=== PATIENT | male | born 1965 | race Caucasian/White ===

== ENCOUNTER 2018-12-10 13:39 | Observation (INO) | payer OTHER ==
[2018-12-10] MEDS ORDERED: Aspirin 81 mg CHEW TAB* 81 MG TAB.CHEW PO ONE (14:02)
[2018-12-10] MEDS ORDERED: Nitroglycerin 2% OINT* 1 GM PAK TOPICAL ONE (14:02)
--- NOTE | 2018-12-10 14:12 | ED ---
HPI Chest Pain - HPI Summary HPI Summary: Pt is a 53 y/o M presenting to the ED with chest pain on his L anterior chest, described as sharp pains, onset randomly, most commonly after he eats. The pain only lasts a few seconds, and then theres a dull discomfort that lasts afterwards. At night, as he falls asleep, he feels as though his heart jumps out of his chest and he has to get up. The pt denies nausea, vomiting, dizziness , shortness of breath, or rash. The pt denies smoking, family hx of heart attacks, or HTN. The pt presently does not drink but previously drank 2 bottles of wine/week. - History of Current Complaint Chief Complaint: EDChestPainROMI Time Seen by Provider: 12/10/18 13:56 Hx Obtained From: Patient Onset/Duration: Started Weeks Ago Timing: Intermittent, Lasting Seconds Initial Severity: Moderate Current Severity: Moderate Pain Intensity: 1 Pain Scale Used: 0-10 Numeric Chest Pain Location: Left Anterior Chest Pain Radiates: No Aggravating Factor(s): Other: - unknown, pt states it is irregular Alleviating Factor(s): Nothing Associated Signs and Symptoms: Positive: Chest Pain. Negative: Anxiety, Shortness of Breath, Nausea, Vomiting - Allergy/Home Medications Allergies/Adverse Reactions: Allergies Allergy/AdvReac Type Severity Reaction Status Date / Time No Known Allergies Allergy Verified 12/10/18 13:49 Home Medications: Home Medications NK [No Home Medications Reported] 12/10/18 [History Confirmed 12/10/18] PMH/Surg Hx/FS Hx/Imm Hx Previously Healthy: Yes Cardiovascular History: Denies: Hx Hypertension History: Denies: Hx Acute Renal Failure Infectious Disease History: No Infectious Disease History: Denies: Traveled Outside the [place] in Last 30 Days - Family History Known Family History: Negative: Cardiac Disease, Hypertension - Social History Alcohol Use: Weekly Substance Use Type: Reports: None Smoking Status (MU): Never Smoked Tobacco Review of Systems Negative: Fever Negative: Shortness Of Breath Negative: Vomiting, Nausea Negative: Rash Neurological: Negative - dizziness All Other Systems Reviewed And Are Negative: Yes Physical Exam - Summary Physical Exam Summary: Appearance: Well appearing, no pain distress Skin: warm, dry, reflects adequate perfusion Head/face: normal Eyes: EOMI, JENNY ENT: normal Neck: supple, non-tender Respiratory: CTA, breath sounds present Cardiovascular: RRR, pulses symmetrical Abdomen: non-tender, soft Musculoskeletal: mild tenderness over L chest, strength/ROM intact Neuro: normal, sensory motor intact, A&Ox3 Triage Information Reviewed: Yes Vital Signs On Initial Exam: Initial Vitals Temp Pulse Resp BP Pulse Ox 97.5 F 79 16 136/82 96 12/10/18 13:45 12/10/18 13:45 12/10/18 13:45 12/10/18 13:45 12/10/18 13:45 Vital Signs Reviewed: Yes Diagnostics - Vital Signs Vital Signs Temp Pulse Resp BP Pulse Ox 12/10/18 13:55 79 15 135/88 98 12/10/18 13:54 69 10 96 12/10/18 13:45 97.5 F 79 16 136/82 96 - Laboratory Result Diagrams: 12/10/18 14:34 12/10/18 14:34 Lab Statement: Any lab studies that have been ordered have been reviewed, and results considered in the medical decision making process. - Radiology Chest x-ray Radiology Interpretation Completed By: Radiologist Summary of Radiographic Findings: No active cardiopulmonary disease. ED physician has reviewed this report. - EKG 1411 Cardiac Rate: NL - 75bpm EKG Rhythm: Sinus Rhythm ST Segment: Normal Ectopy: None Chest Pain Course/Dx - Course Course Of Treatment: Pt is a 53 y/o M presenting to the ED with chest pain on his L anterior chest, described as sharp pains, onset randomly, most commonly after he eats. The pt denies nausea, vomiting, dizziness, shortness of breath, or rash. The pt denies smoking, family hx of heart attacks, or HTN. The pt presently does not drink but previously drank 2 bottles of wine/week. Bloodwork obtained. EKG shows NSR at 75bpm. A chest x-ray reveals no active cardiopulmonary disease. Patient will be admitted with a dx of chest pain to r/ o ND. - Chest Pain Differential Diagnosis/HQI/PQRI: Acute ND, ACS, Angina, Chest Wall, Lower Respiratory Infection, Pulmonary Edema - Diagnoses Provider Diagnoses: Chest pain, rule out acute myocardial infarction - Provider Notifications Discussed Care Of Patient With: Brett Delacruz - hospitalist Time Discussed With Above Provider: 15:55 Discharge - Sign-Out/Discharge Documenting (check all that apply): Patient Departure - Discharge Plan Condition: Stable Disposition: ADMITTED TO [facility] Referrals: Edil Mcginnis MD [Primary Care Provider] - - Billing Disposition and Condition Condition: STABLE Disposition: Admitted to [facility] - Attestation Statements Document Initiated by Isai: Yes Documenting Scribe: Gloria Valle Provider For Whom Isai is Documenting (Include Credential): Chalo Crane MD. Scribe Attestation: Gloria Rizo scribed for Chalo Crane MD. on 12/10/18 at 1627. Scribe Documentation Reviewed: Yes Provider Attestation: The documentation as recorded by the Gloria mcclellan accurately reflects the service I personally performed and the decisions made by Chalo birmingham MD. Status of Scribe Document: Viewed
[2018-12-10 14:41] LABS: Hematocrit 47 % (42-52); Hemoglobin 15.7 g/dl (14.0-18.0); Mean Corpuscular HGB Conc 34 g/dl (31-36); Mean Corpuscular Hemoglobin 29 pg (27-31); Mean Corpuscular Volume 87 fL (80-94); Mean Platelet Volume 8.8 fL (7.4-10.4); Platelet Count 188 10^3/ul (150-450); Red Blood Count 5.36 10^6/ul (4.00-5.40); Red Cell Distribution Width 13 % (10.5-15); White Blood Count 13.9 10^3/ul (3.5-10.8)
[2018-12-10 15:00] LABS: Albumin 4.3 g/dL (3.2-5.2); Albumin/Globulin Ratio 1.5 (1-3); BUN/Creatinine Ratio 30.9 (8-20); Calcium 9.3 mg/dL (8.6-10.3); EGFR Non-African American 154.7 (>60); Globulin 2.9 g/dL (2-4); Potassium 4.1 mmol/L (3.5-5.0); Total Protein 7.2 g/dL (6.4-8.9)
[2018-12-10 15:07] LABS: Activated Partial Thrombo Time 34.4 seconds (26.0-36.3); INR 1.04 (0.77-1.02)
[2018-12-10 15:48] LABS: ABS Basophils 0.1 10^3/ul (0-0.2); ABS Eosinophils 0 10^3/ul (0-0.6); ABS Lymphocytes 10.4 10^3/ul (1.0-4.8); ABS Monocytes 0.6 10^3/ul (0-0.8); ABS Neutrophils 2.8 10^3/ul (1.5-7.7); ABS Nucleated RBC 0.1 10^3/ul; Eosinophil % 0.2 %; Lymphocyte % 75.1 %; Nucleated Red Blood Cells % 0.5
[2018-12-10] MEDS ORDERED: Acetaminophen TAB* 325 MG PO PRN (16:25)
[2018-12-10] MEDS ORDERED: Ondansetron INJ* 2 MG/ML VIAL IV PRN (16:25)
[2018-12-10] MEDS ORDERED: Nitroglycerin TAB 0.4 MG* 0.4 MG TAB SL PRN (16:25)
[2018-12-10] MEDS: Pantoprazole TAB * 40 MG TAB PO SCH (17:17)
[2018-12-10] MEDS: NS 0.9% 1000 ML* 1,000 ML IV SCH (17:17)
[2018-12-10] MEDS: Heparin VIAL(*) 5000 UNITS/ML VIAL (FIVE THOUSAND) SUBCUT SCH (20:53)
--- NOTE | 2018-12-10 21:20 | HP ---
CC: Dr. Edil Mcginnis HISTORY AND PHYSICAL: DATE OF ADMISSION: 12/10/18 CHIEF COMPLAINT: Chest pain. PRIMARY CARE PROVIDER: Dr. Edil Mcginnis. HISTORY OF PRESENT ILLNESS: This is a 53-year-old male who does not carry any significant past medic al history other than myoclonus and sleep disorder, presented to the emergency room with intermittent chest pain for the past 2 to 3 days, unable to contribute it to a specific factor. Three days ago, when it happened, it was sharp, retrosternal. He associated it to a large meal that he had. The he continued to have intermittent chest pain radiating to the left shoulder and worsening of his myoclonus symptoms. Out of concern that this could be related to a muscle spasm related to my oclonus causing some heart damage, he came into the emergency room. In the emergency room, he was s een and evaluated. His initial workup was fairly unremarkable and benign, except for a white cell on his CBC of 13.9, without any fever or chills, normal differentials, slightly elevated absolute lymph ocyte. His INR was 1.0 and his chemistry fairly unremarkable, with negative troponin so far x3. Pat ient had as well a chest x-ray, which was negative. EKG shows normal sinus rhythm, no ischemic arevalo es, no ST or T-wave changes to suggest ischemia. His rate was 75, AR 187, QTc 407 and QRS 96. The p atient is, hence, being admitted under medical service for observation given his symptoms of chest pa in. PAST MEDICAL HISTORY: Myoclonus. ALLERGIES: No known drug allergy. SOCIAL HISTORY: Denies any excessive tobacco or alcohol abuse; very seldom one drink, if any, in a w [place]. FAMILY HISTORY: Denied any history of cardiac disease. PAST SURGICAL HISTORY: Denies any. PHYSICAL EXAMINATION GENERAL: He is awake, alert, oriented. No apparent acute or cardiac distress. VITAL SIGNS: Temperature 97.1, pulse 70, respiratory rate 18, saturation 97, blood pressure 123/63. HEAD and NECK: Normocephalic, atraumatic. Supple. Anicteric sclerae. No JVD. Moist mucous membran es. LUNGS: Clear to auscultation bilaterally. No crackles, rales or wheezes. CARDIOVASCULAR: S1 and S2; regular rate and rhythm. No murmur. ABDOMEN: Positive bowel sounds, soft, nontender, nondistended. EXTREMITIES: No pedal edema. Good peripheral pulses bilaterally. COATING TECHNICIAN: There is no motor or focal sensory deficit. DIAGNOSTIC STUDIES/LAB DATA: His CBC shows white count 13.9, hemoglobin 15.7, hematocrit 47, platel et 188. INR 1.0. Chemistry: Sodium 139, potassium 4.1, BUN 17, creatinine 0.5, glucose 101, calcium 9.3, total bili 2 .0, AST 26, ALT 32, alk phos 79. Chest x-ray: No active disease. EKG: Sinus rhythm, rate 75. No ischemic ST wave changes. There is Q-wave in the inferior lead. No prior EKG for comparison. Troponin negative x3. IMPRESSION: This is a 53-year-old male, comes in with a chest pain, possible atypical presentation, acute coronary syndrome rule out versus gastrointestinal symptoms. We will admit to Telemetry. We wi ll continue with observation. We will obtain serial cardiac enzymes q.6 hours. Repeat diagnostic la b in the morning. If patient's troponin is negative, remaining asymptomatic, we will discharge patie nt in the morning with outpatient followup. History of myoclonus. I discussed with the patient the potential problem underlying, sleep apnea, ma y be central. Recommended to have outpatient sleep study. [id number]/[facility] #: [id number]
[2018-12-11] MEDS: Pantoprazole TAB * 40 MG TAB PO SCH (05:05)
[2018-12-11] MEDS: Heparin VIAL(*) 5000 UNITS/ML VIAL (FIVE THOUSAND) SUBCUT SCH ×2 (05:05→13:19)
[2018-12-11 06:35] LABS: Hematocrit 43 % (42-52); Hemoglobin 14.3 g/dl (14.0-18.0); Mean Corpuscular HGB Conc 34 g/dl (31-36); Mean Corpuscular Hemoglobin 29 pg (27-31); Mean Corpuscular Volume 88 fL (80-94); Mean Platelet Volume 8.8 fL (7.4-10.4); Platelet Count 162 10^3/ul (150-450); Red Blood Count 4.88 10^6/ul (4.00-5.40); Red Cell Distribution Width 14 % (10.5-15); White Blood Count 13.7 10^3/ul (3.5-10.8)
[2018-12-11 07:13] LABS: BUN/Creatinine Ratio 28.8 (8-20); Calcium 9.1 mg/dL (8.6-10.3); EGFR Non-African American 142.6 (>60); HDL Cholesterol 25.7 mg/dL; Phosphorus 3.5 mg/dL (2.5-5.0); Potassium 4.1 mmol/L (3.5-5.0)
[2018-12-11 07:32] LABS: ABS Basophils 0 10^3/ul (0-0.2); ABS Eosinophils 0 10^3/ul (0-0.6); ABS Lymphocytes 9.7 10^3/ul (1.0-4.8); ABS Monocytes 0.6 10^3/ul (0-0.8); ABS Neutrophils 3.3 10^3/ul (1.5-7.7); ABS Nucleated RBC 0.1 10^3/ul; Eosinophil % 0.2 %; Nucleated Red Blood Cells % 0.9
[2018-12-11] MEDS: NS 0.9% 1000 ML* 1,000 ML IV SCH (08:01)
[2018-12-11] MEDS ORDERED: Aspirin EC TAB* 325 MG PO SCH (09:00)
[2018-12-11 12:11] VITALS: BP 137/75
--- NOTE | 2018-12-11 22:04 | DS ---
CC: Dr. Edil Mcginnis * DISCHARGE SUMMARY: DATE OF ADMISSION: 12/10/18 DATE OF DISCHARGE: 12/11/18 PRIMARY CARE PROVIDER: Dr. Edil Mcginnis. FINAL DISCHARGE DIAGNOSES: 1. Chest pain, atypical, suspect most likely secondary to gastroesophageal reflux disease. 2. History of myoclonia. HOSPITAL COURSE: The patient presented to [facility] on 12/10/18 for very vague, nonspecific chest pain, tightness, radiating to bilateral chest, associated with his known history of myoclonus. However, the chest pain and tightness and spasm was little more severe and more pronounced than his previous. Hence, he came into the emergency room for further evaluation. In the emergency room, his initial workup was fairly unremarkable with negative troponin, negative EKG other than underlying baseline increase of leukocytosis. Therefore, the patient was admitted and was monitored on tele. His cardiac workup consisted of serial cardiac enzymes, 24-hour telemonitor, and repeat EKG which were fairly unremarkable. He was asymptomatic. He did have no episode of chest pain overnight and on the following morning. The patient did, however , have some transient episodes of bilateral hand numbness, which was resolved. This has usually also happened with his myoclonus, but this time was only slightly more severe. PHYSICAL EXAMINATION: Otherwise, the rest of his vitals were unremarkable. Temperature 97.9, pulse 73, respiratory 16, satting 95%, blood pressure 137/75. In general, he is awake, alert, pleasant, cooperative, no apparent distress. Head and Neck: Normocephalic, atraumatic. Supple. Lungs: Clear to auscultation. Cardiovascular: S1, S2. Regular rate and rhythm. No murmur. Abdomen: Positive bowel sounds. Soft, nontender, nondistended. Extremities: No pedal edema. He has a positive good grasp at bilateral hands. DIAGNOSTICS: His CBC was significant for leukocytosis of 13.9. No prior other than 2014, it was 7.6. His chemistry was unremarkable. Negative troponin times at least 4 sets, 0.00. His lipid panel was significant for normal LDL of 54 with triglycerides 218, elevated. His chest x-ray was reported to be no acute disease, no pulmonary disease. His EKG x2 revealed normal sinus rhythm. Pulse was 75. QRS 96, QTc 407, VT 187, good R-wave progression, no ischemic or ST-T wave changes to suggest ischemia. DISCHARGE RECOMMENDATIONS: 1. The patient to follow up with his primary care as scheduled and further followup for further cardiac workup can be deferred for outpatient after discussion with PCP such as cardiac testing, stress testing, or cardiology referral. 2. For his leukocytosis without the fever, whether this is leukemoid reaction versus further investigation with repeat CBC with peripheral smear and Hematology referral for outpatient, I will defer that again to his primary care provider. 3. I did suggest the patient to take pantoprazole for atypical chest pain which is probably due to his reflux and if it does offer some relief, further prescription can be obtained and refilled from his primary care provider. [id number]/[facility] #: [id number] CATIE
== END 2018-12-11 14:50 | disposition home or self-care (01) ==
LOC: ED 13:39 → MEDTELE 16:18
PROVIDERS: ADMIT Internal Medicine; ATTEND Internal Medicine
DX: R07.89 Other chest pain (principal); G40.B19 Juvenile myoclonic epilepsy, intractable, without status epilepticus; G47.9 Sleep disorder, unspecified; R42 Dizziness and giddiness
CPT/HCPCS: 36415; 71045; 80048; 80053; 80061; 83735; 83880; 84100; 84484; 85025; 85060; 85610; 85730; 93005; 96372; 96374; 99283; A9270-GY; G0378; J1644

== ENCOUNTER 2019-04-03 17:15 | Emergency (ER) | payer OTHER ==
--- NOTE | 2019-04-03 18:35 | ED ---
Back Pain - HPI Summary HPI Summary: A 53 y/o M presents to ED with atraumatic, lower back pain onset 2-3 weeks ago. Initially, the pain was present at night, when he's trying to sleep. Aggravating factors: mornings, going down stairs. More recently, his back pain has worsened and is present more often and radiating up his back and into his chest. Today, he had severe, sharp CP described as tightening onset 1100 that lasted approx 5 minutes. Associated sx: bloated, constipation, metallic taste in mouth, decreased oral intake, palpitations. Denies fever. PMHx: esophagitis. No PMHx back problems, DM. Non-smoker. - History of Current Complaint Chief Complaint: EDBackInjuryPain Stated Complaint: RT SIDE AND BACK PAIN PER PT Time Seen by Provider: 04/03/19 18:28 Hx Obtained From: Patient Onset/Duration: Gradual Onset, Lasting Weeks - back pain, Still Present Onset/Duration: Started Weeks Ago - back pain, Atraumatic, Still Present Timing: Constant Back Pain Location: Is Discrete @ - lower back, Radiates To - upper back and chest Severity Initially: Mild Severity Currently: Mild Pain Intensity: 2 - out of 10, back pain Pain Scale Used: 0-10 Numeric Aggravating Symptom(s): Other - mornings and going down stairs Associated Signs And Symptoms: Positive: Other - pos: bloated, constipation, metallic taste in mouth, decreased oral intake, palpitations. Negative: Fever - Allergies/Home Medications Allergies/Adverse Reactions: Allergies Allergy/AdvReac Type Severity Reaction Status Date / Time No Known Allergies Allergy Verified 12/10/18 13:49 PMH/Surg Hx/FS Hx/Imm Hx Previously Healthy: No Endocrine/Hematology History: Denies: Hx Diabetes Cardiovascular History: Denies: Hx Hypertension GI History: Reports: Other GI Disorders - esophagitis History: Denies: Hx Acute Renal Failure Musculoskeletal History: Denies: Hx Back Problems Sensory History: Reports: Hx Contacts or Glasses Denies: Hx Hearing Aid Opthamlomology History: Reports: Hx Contacts or Glasses Neurological History: Comment Only: Other Neuro Impairments/Disorders - Myoclonus - Surgical History Surgery Procedure, Year, and Place: Eye surgery Infectious Disease History: No Infectious Disease History: Denies: Traveled Outside the [place] in Last 30 Days - Family History Known Family History: Positive: Other - mother alive / healthy at 75 years old Negative: Cardiac Disease, Hypertension - Social History Occupation: Unemployed - OTHER Lives: Alone Alcohol Use: Occasionally Hx Substance Use: No Substance Use Type: Reports: None Hx Tobacco Use: No Smoking Status (MU): Never Smoked Tobacco Review of Systems Negative: Fever Positive: Palpitations, Chest Pain Positive: Other - pos: bloated, constipation, decreased oral intake, metallic taste in mouth Musculoskeletal: Other - pos: back pain All Other Systems Reviewed And Are Negative: Yes Physical Exam - Summary Physical Exam Summary: Appearance: Well-appearing, Well-nourished, lying in bed comfortably Skin: Warm, dry, no obvious rash Eyes: sclera anicteric, no conjunctival pallor ENT: mucous membranes moist, pharynx appears normal Neck: Supple, nontender Respiratory: Clear to auscultation, no signs of respiratory distress Cardiovascular: Normal S1, S2. No murmurs. Normal distal pulses in tibial and radial bilaterally. Abdomen: Soft, nontender, normal active bowel sounds present Musculoskeletal: Normal, Strength/ROM Intact. No clonus nor hyperactive reflexes. Neurological: A&Ox3, awake and alert, mentation is normal, speech is fluent and appropriate Psychiatric: affect is normal, does not appear anxious or depressed Rectal exam: Non-tender prostate. Triage Information Reviewed: Yes Vital Signs On Initial Exam: Initial Vitals Temp Pulse Resp BP Pulse Ox 98.6 F 94 18 127/96 95 04/03/19 17:37 04/03/19 17:37 04/03/19 17:37 04/03/19 17:37 04/03/19 17:37 Vital Signs Reviewed: Yes Diagnostics - Vital Signs Vital Signs Temp Pulse Resp BP Pulse Ox 04/03/19 17:37 98.6 F 94 18 127/96 95 - Laboratory Result Diagrams: 04/03/19 19:02 04/03/19 19:02 Lab Statement: Any lab studies that have been ordered have been reviewed, and results considered in the medical decision making process. - Radiology L-SPINE Radiology Interpretation Completed By: ED Physician Summary of Radiographic Findings: Negative. - EKG 1744 Cardiac Rate: NL - 86 bpm EKG Rhythm: Sinus Rhythm Summary of EKG Findings: NSR at 86 BPM, P waves, QRS complex, and T waves are within normal limits, T waves and intervals are normal, no ischemic changes. This is a normal EKG. Re-Evaluation - Re-Evaluation 1 Re-Evaluation Time: 21:02 Change: Worse Comment: Called to see patient for abrupt onset of a burning sensation in the penis. This began immediately after he voided, he has never had it before. It appears to be dissipating fairly quickly fortunately. We will await the results of urinalysis. Exam of the male genitalia appears normal. 2 Re-Evaluation Time: 21:34 Change: Unchanged Comment: Rectal exam shows a non-tender prostate. Back Pain Course/Dx - Course Course Of Treatment: Pt is a 53 y/o M presenting with atraumatic, lower back pain onset 2-3 weeks ago. More recently, his back pain is radiating up to his back and into his chest. Today, he had severe, sharp CP described as tightening onset 1100 that lasted approx 5 minutes. L-spine XR was negative. EKG shows NSR at 86 BPM, P waves, QRS complex, and T waves are within normal limits, T waves and intervals are normal, no ischemic changes. UA results are unremarkable. Will discharge patient home with Vicodin and to f/u with his PCP. - Diagnoses Provider Diagnoses: Mechanical low back pain, Chest pain, Dysuria Discharge - Sign-Out/Discharge Documenting (check all that apply): Patient Departure - D/C Patient Received Moderate/Deep Sedation with Procedure: No - Discharge Plan Condition: Good Disposition: HOME Prescriptions: Hydrocodone/Acetaminophen [Hydrocodone-Acetamin 5-325 mg] 1 each PO Q4HR PRN # 15 tablet MDD 4 tabs PRN Reason: Pain Patient Education Materials: Chest Pain (ED), Acute Low Back Pain (ED) Referrals: Alfonso Baxter MD [Medical Doctor] - Edil Mcginnis MD [Primary Care Provider] - Additional Instructions: I am not sure what caused the pain after urination, as the urinalysis was normal and the prostate did not feel enlarged or particularly tender. The back pain appears to be related to the supporting structures of the back, the muscles and ligaments to surround the spine, and generally can be treated with pain medication and time. Your primary provider may want to send you to get some physical therapy which can also be helpful. We did not find any evidence of a serious or dangerous cause for your pain, nor did we find any sign of a heart condition causing your chest pain. - Billing Disposition and Condition Condition: GOOD Disposition: Home - Attestation Statements Document Initiated by Eleuterio: Yes Documenting Scribe: Mame Cook Provider For Whom Eleuterio is Documenting (Include Credential): Dr. Yassine Ruano MD Scribe Attestation: I, Mame Cook, scribed for Dr. Yassine Ruano MD on 04/04/19 at 1151. Scribe Documentation Reviewed: Yes Provider Attestation: The documentation as recorded by the eleuterio, Mame Cook accurately reflects the service I personally performed and the decisions made by me, Dr. Yassine Ruano MD Status of Scribe Document: Viewed
[2019-04-03 19:09] LABS: Hematocrit 45 % (42-52); Hemoglobin 15.1 g/dL (14.0-18.0); Mean Corpuscular HGB Conc 34 g/dL (31-36); Mean Corpuscular Hemoglobin 30 pg (27-31); Mean Corpuscular Volume 88 fL (80-94); Platelet Count 177 10^3/uL (150-450); Red Blood Count 5.06 10^6 /uL (4.18-5.48); Red Cell Distribution Width 14 % (10.5-15); White Blood Count 16.2 10^3/uL (3.5-10.8)
[2019-04-03] MEDS ORDERED: Ibuprofen TAB* 400 MG PO ONE (19:21)
[2019-04-03 19:22] LABS: Albumin 4.5 g/dL (3.2-5.2); CO2 Carbon Dioxide 25 mmol/L (22-32); Calcium 9.3 mg/dL (8.6-10.3); Chloride 110 mmol/L (101-111); Sodium 142 mmol/L (135-145)
[2019-04-03 19:28] LABS: ALT 25 U/L (7-52); Albumin/Globulin Ratio 1.9 (1-3); Alkaline Phosphatase 85 U/L (34-104); BUN/Creatinine Ratio 21.2 (8-20); Blood Urea Nitrogen 14 mg/dL (6-24); C Reactive Protein < 1.00 mg/L (<8.01); EGFR African American 151.6 (>60); EGFR Non-African American 125.3 (>60); Globulin 2.4 g/dL (2-4); Glucose 110 mg/dL (70-100); Total Protein 6.9 g/dL (6.4-8.9); Troponin I 0.01 ng/mL (<0.04)
[2019-04-03 19:38] LABS: Anion Gap 7 mmol/L (2-11)
[2019-04-03 21:25] LABS: Urine Appearance Cloudy; Urine Bilirubin Negative (Negative); Urine Blood Negative (Negative); Urine Color Yellow; Urine Glucose Negative (Negative); Urine Ketones Negative (Negative); Urine Nitrite Negative (Negative); Urine Protein Negative (Negative); Urine Specific Gravity 1.026 (1.010-1.030); Urine Urobilinogen Negative (Negative)
[2019-04-03 21:54] VITALS: BP 126/74
[2019-04-04 13:42] LABS: Neisseria gonorrhoeae (GC) RNA Negative (Negative)
== END 2019-04-03 21:58 | disposition home or self-care (01) ==
LOC: ED 17:15
DX: M54.5 Low back pain (principal); R07.9 Chest pain, unspecified; R30.0 Dysuria
CPT/HCPCS: 36415; 72100; 80053; 81003; 84484; 85025; 85060; 86140; 87491; 87591; 93005; 99283; A9270-GY

== ENCOUNTER 2019-12-16 08:27 | Emergency (ER) | payer OTHER ==
[2019-12-16 09:37] LABS: Urine Appearance Cloudy; Urine Bilirubin Negative (Negative); Urine Blood Negative (Negative); Urine Color Yellow; Urine Glucose Negative (Negative); Urine Ketones Negative (Negative); Urine Nitrite Negative (Negative); Urine Protein Negative (Negative); Urine Specific Gravity 1.026 (1.010-1.030); Urine Urobilinogen Negative (Negative)
[2019-12-16 09:48] LABS: Urine Bacteria Absent (Absent); Urine Red Blood Cell 1+(3-5/hpf) (Absent); Urine Squamous Epithelial Cell Present (Absent); Urine White Blood Cell Trace(0-5/hpf) (Absent)
[2019-12-16 10:41] VITALS: BP 121/78
--- NOTE | 2019-12-16 11:20 | ED ---
Back Pain - HPI Summary HPI Summary: This patient is a 54-year-old male who presents to the ED with acute on chronic back pain. Patient is endorsing pain directly over the low spine. He denies any injury. He states it has been present for approximately 3 weeks, however before this he states he has had back pain throughout the last several years intermittently. He states he is here to get a workup for colon cancer. He is concerned with this as his grandfather recently had a tumor removed. He states he is concerned as he is having "some rectal pressure." He denies any bladder or bowel dysfunction. He states he has had this pressure intermittently in the past. No BRBPR. No hx of hemorrhoids. He denies having a colonoscopy. He did have a GAIL and occult stool last visit with no findings. Pt states he feels this is coming from his low back. Denies any numbness, tingling, weakness or abd distention. - History of Current Complaint Chief Complaint: EDBackInjuryPain Stated Complaint: LOWER BACK PAIN PER PT Time Seen by Provider: 12/16/19 08:40 Hx Obtained From: Patient Onset/Duration: Gradual Onset Onset/Duration: Started Hours Ago Timing: Constant Back Pain Location: Is Discrete @ - low back with associated rectal pressure Severity Initially: Mild Severity Currently: None Pain Intensity: 2 Pain Scale Used: 0-10 Numeric Character: Sharp Aggravating Symptom(s): Movement, Lifting, Bending Alleviating Symptom(s): Rest, Position Associated Signs And Symptoms: Positive: Negative - Risk Factors AAA Risk Factors: Negative TAD Risk Factors: Negative Cauda Equina Risk Factors: Negative - Allergies/Home Medications Allergies/Adverse Reactions: Allergies Allergy/AdvReac Type Severity Reaction Status Date / Time No Known Allergies Allergy Verified 12/16/19 09:12 PMH/Surg Hx/FS Hx/Imm Hx Previously Healthy: Yes Endocrine/Hematology History: Denies: Hx Diabetes Cardiovascular History: Denies: Hx Hypertension GI History: Reports: Other GI Disorders - esophagitis History: Denies: Hx Acute Renal Failure Musculoskeletal History: Denies: Hx Back Problems Sensory History: Reports: Hx Contacts or Glasses Denies: Hx Hearing Aid Opthamlomology History: Reports: Hx Contacts or Glasses Neurological History: Comment Only: Other Neuro Impairments/Disorders - Myoclonus - Surgical History Surgery Procedure, Year, and Place: Eye surgery - Immunization History Hx Pertussis Vaccination: No Immunizations Up to Date: Yes Infectious Disease History: No Infectious Disease History: Denies: Traveled Outside the [place] in Last 30 Days - Family History Known Family History: Positive: Other - mother alive / healthy at 75 years old Negative: Cardiac Disease, Hypertension - Social History Occupation: Employed Full-time Lives: With Family Alcohol Use: Occasionally Hx Substance Use: No Substance Use Type: Reports: None Hx Tobacco Use: No Smoking Status (MU): Never Smoked Tobacco Review of Systems Negative: Fever, Chills, Fatigue, Skin Diaphoresis Negative: Palpitations, Chest Pain Negative: Shortness Of Breath, Cough Negative: Abdominal Pain, Vomiting, Diarrhea, Nausea Genitourinary: Negative Positive: no symptoms reported, see HPI Positive: Arthralgia - low back pain Neurological: Negative All Other Systems Reviewed And Are Negative: Yes Physical Exam Triage Information Reviewed: Yes Vital Signs On Initial Exam: Initial Vitals Temp Pulse Resp BP Pulse Ox 99.3 F 83 16 121/75 97 12/16/19 08:29 12/16/19 08:29 12/16/19 08:29 12/16/19 08:29 12/16/19 08:29 Vital Signs Reviewed: Yes Appearance: Positive: Well-Appearing, Well-Nourished Skin: Positive: Warm, Skin Color Reflects Adequate Perfusion Head/Face: Positive: Normal Head/Face Inspection Eyes: Positive: Normal, JENNY, Conjunctiva Clear Neck: Positive: Supple, Nontender, No Lymphadenopathy Respiratory/Lung Sounds: Positive: Clear to Auscultation, Breath Sounds Present Cardiovascular: Positive: RRR, Pulses are Symmetrical in both Upper and Lower Extremities Musculoskeletal: Positive: Pain @ - L4/L5 low back pain on palpation, no step off noted, no paraspinal tenderness, numbness or tingling. Neurological: Positive: Sensory/Motor Intact, Alert, Oriented to Person Place, Time, Speech Normal Psychiatric: Positive: Normal, Affect/Mood Appropriate AVPU Assessment: Alert Procedures - Sedation Patient Received Moderate/Deep Sedation with Procedure: No Diagnostics - Vital Signs Vital Signs Temp Pulse Resp BP Pulse Ox 12/16/19 10:40 98.1 F 68 16 121/78 98 12/16/19 08:29 99.3 F 83 16 121/75 97 - Laboratory Lab Results: Lab Results 12/16/19 Range/Units 09:19 Urine Color Yellow Urine Appearance Cloudy Urine pH 5.0 (5-9) Ur Specific [place] 1.026 (1.010-1.030) Urine Protein Negative (Negative) Urine Ketones Negative (Negative) Urine Blood Negative (Negative) Urine Nitrate Negative (Negative) Urine Bilirubin Negative (Negative) Urine Urobilinogen Negative (Negative) Ur Leukocyte Esterase Trace A (Negative) Urine WBC (Auto) Trace(0-5/hpf) (Absent) Urine RBC (Auto) 1+(3-5/hpf) A (Absent) Ur Squamous Epith Cells Present A (Absent) Urine Bacteria Absent (Absent) Urine Glucose Negative (Negative) Lab Statement: Any lab studies that have been ordered have been reviewed, and results considered in the medical decision making process. Back Pain Course/Dx - Course Course Of Treatment: During his course treatment: The patient is evaluated for acute low back pain over L4 and L5. Patient states he has had back pain for several years, however strained it last evening. He states that he is here for his back pain, he is more concerned for colon cancer. He recently found out his grandfather had a mass removed from his colon and is here for a workup for colon cancer. He denies any bloody stool, abdominal pain, abdominal distention. He states he has had intermittent rectal "pressure" associated with his back pain for years and believes this may be colon CA. Despite his concners, he states he has not wanted a colonoscopy. Patient is able to flex and extend about the hips. Rotate about the hips. He is endorsing pain directly over L4 on L5. Denies any trauma or falls. No numbness or tingling noted. Otherwise healthy. Ct lumbar spine was obtained to assess degree of stenosis or fx associated with his worsening pain. I have discussed the importance of colonoscopy, however without pain currently, BRBPR, abd pain or other findings, this is not emergent and can be evaluated further as an outpatient. - Diagnoses Differential Diagnosis/HQI/PQRI: Positive: Strain, Sprain Provider Diagnoses: Low back pain Discharge ED - Sign-Out/Discharge Documenting (check all that apply): Patient Departure - Discharge Plan Condition: Stable Disposition: HOME Patient Education Materials: Low Back Strain (ED), Acute Low Back Pain (ED), Colonoscopy (DC) Referrals: Rik Mcgraw MD [Medical Doctor] - No Primary Care Phys,NOPCP [Primary Care Provider] - Additional Instructions: Please follow up with GI Call next week Please follow up with your PCP next week if possible I recommend you have a colonoscopy - Billing Disposition and Condition Condition: STABLE Disposition: Home
== END 2019-12-16 10:40 | disposition home or self-care (01) ==
LOC: ED 08:27
DX: M54.5 Low back pain (principal)
CPT/HCPCS: 72131; 81003; 81015; 87086; 99282

== ENCOUNTER 2020-03-02 07:31 | Emergency (ER) | payer OTHER ==
--- NOTE | 2020-03-02 07:41 | ED ---
HPI Chest Pain - HPI Summary HPI Summary: This pt is a 54 Y/O M presenting to [facility] with a CC of CP that has occurred last night and this morning that was rated a 1/10 in severity and was located mid-sternal. He states that he was lying in bed trying to rest due to a pain that is located in his R leg. He states that the CP has been intermittent since the onset and lasts for roughly 30 minutes. He states that his R leg hurts all over and has woken him during the night. He states that he has had a lack of sleep due to the pain. He states that the pain exists behind his knee, in his calf, or in his nice depending on how he is standing or sitting. He reports a recent fall on 03/12/2020 which he believes may have caused his knee pain but he is worried about a blood clot. He denies any nausea, diaphoresis, headaches, fevers, chills, and myalgia. He has no aggravating or alleviating factors. He states no pertinent PMHx. He states that he occasionally drinks wine. He states that he has been taking 2 small tablets every 4 hours of ASA. - History of Current Complaint Chief Complaint: EDChestPainROMI Time Seen by Provider: 03/02/20 07:33 Hx Obtained From: Patient Onset/Duration: Started Days Ago - 1 Timing: Constant Initial Severity: Mild Current Severity: Mild Pain Intensity: 1 Pain Scale Used: 0-10 Numeric Chest Pain Location: Mid Sternal Chest Pain Radiates: No Aggravating Factor(s): Nothing Alleviating Factor(s): Nothing Associated Signs and Symptoms: Positive: Chest Pain, Shortness of Breath, Other : - R leg pain. Negative: Headaches, Fever, Chills, Diaphoresis, Nausea - Allergy/Home Medications Allergies/Adverse Reactions: Allergies Allergy/AdvReac Type Severity Reaction Status Date / Time No Known Allergies Allergy Verified 12/16/19 09:12 Home Medications: Home Medications Hydrocodone/Acetaminophen [Hydrocodone-Acetamin 5-325 mg] 1 each PO Q4HR PRN # 15 tablet MDD 4 tabs 04/04/19 [Rx] Acetaminophen TAB* [Tylenol TAB*] 650 mg PO Q6HR PRN #30 tab 03/02/20 [Rx] Ibuprofen TAB* [Motrin TAB* 600 MG] 600 mg PO Q6H PRN #30 tab 04/11/20 [Rx] PMH/Surg Hx/FS Hx/Imm Hx Previously Healthy: Yes Endocrine/Hematology History: Denies: Hx Diabetes Cardiovascular History: Denies: Hx Hypertension GI History: Reports: Other GI Disorders - esophagitis History: Denies: Hx Acute Renal Failure Musculoskeletal History: Denies: Hx Back Problems Sensory History: Reports: Hx Contacts or Glasses Denies: Hx Hearing Aid Opthamlomology History: Reports: Hx Contacts or Glasses Neurological History: Comment Only: Other Neuro Impairments/Disorders - Myoclonus - Cancer History Hx Chemotherapy: No Hx Radiation Therapy: No - Surgical History Surgical History: Yes Surgery Procedure, Year, and Place: Eye surgery - Immunization History Immunizations Up to Date: Yes - Family History Known Family History: Negative: Cardiac Disease, Hypertension - Social History Occupation: Employed Full-time Lives: Alone Alcohol Use: Occasionally Hx Substance Use: No Substance Use Type: Reports: None Hx Tobacco Use: No Smoking Status (MU): Never Smoked Tobacco Review of Systems Negative: Fever, Chills, Skin Diaphoresis Positive: Chest Pain Positive: Shortness Of Breath Negative: Nausea Negative: Myalgia Negative: Headache All Other Systems Reviewed And Are Negative: Yes Physical Exam - Summary Physical Exam Summary: Constitutional: Well-developed, Well-nourished, Alert. (-) Distressed Skin: Warm, Dry HENT: Normocephalic; Atraumatic Eyes: Conjunctiva normal Neck: Musculoskeletal ROM normal neck. (-) JVD, (-) Stridor, (-) Tracheal deviation Cardio: Rhythm regular, rate normal, Heart sounds normal; Intact distal pulses; The pedal pulses are 2+ and symmetric. Radial pulses are 2+ and symmetric. (-) Murmur Good pulses bilaterally in radius, No calf tenderness, No venous cords, No pain with dorsiflexion of foot Pulmonary/Chest wall: Effort normal. (-) Respiratory distress, (-) Wheezes, (-) Rales Abd: Soft, (-) tenderness, (-) Distension, (-) Guarding, (-) Rebound Musculoskeletal: (-) Edema, Crepitus in the R knee, no leg swelling Lymph: (-) Cervical adenopathy Neuro: Alert, Oriented x3 Psych: Mood and affect Normal Triage Information Reviewed: Yes Vital Signs On Initial Exam: Temp Pulse Resp BP SpO2 FiO2 98.9 F 79 17 139/77 97 03/02/20 07:39 03/02/20 07:39 03/02/20 07:39 03/02/20 07:39 03/02/20 07:39 Vital Signs Reviewed: Yes Procedures - Sedation Patient Received Moderate/Deep Sedation with Procedure: No Diagnostics - Laboratory Result Diagrams: 03/02/20 08:20 03/02/20 08:20 Lab Statement: Any lab studies that have been ordered have been reviewed, and results considered in the medical decision making process. - Radiology CXR Radiology Interpretation Completed By: Radiologist Summary of Radiographic Findings: Stigmata of obstructive lung disease. No acute pulmonary or cardiac process evident. ED physician has reviewed this report. - EKG 0838 Cardiac Rate: NL - 62 BPM EKG Rhythm: Sinus Rhythm ST Segment: Normal Ectopy: None Summary of EKG Findings: NSR at 62 BPM, P waves, QRS complex, and T waves are within normal limits, T waves and intervals are normal, no ischemic changes. This is a normal EKG. Interpreted by Dr. Smith at 0846 03/02/2020. Chest Pain Course/Dx - Course Course Of Treatment: Patient is here with chest pain and leg pain. Patient states that he fell a couple of days ago onto an artery injured back and has had pain in his back. Patient developed pain in his right knee following that accident. Patient's pain is worse when he is not exerting himself. Patient has no swelling in his leg and his pain is centered around his knee and he has obvious bony crepitus on exam. Patient's exam was not consistent with a DVT so a d-dimer sent which was negative. Patient also describes some vague migrating chest pain. Patient had an EKG which showed no evidence of ischemia. Patient had a negative troponin. Patient had a normal chest x-ray. Patient has a leukocytosis of 22 consistent with his diagnosed CLL. Patient did have elevated bilirubin and INR which was elevated last year but denies are worse today. Patient did have mild direct hyperbilirubinemia as well. Patient had an ultrasound of his liver to evaluate for possible intrinsic pathology which was normal. Patient was given care connections and [facility] PCP referral to establish a primary care doctor. Patient was told he needs to get his hyperbilirubinemia worked up. Patient is overall low risk on heart score and his story is not consistent with ACS. - Diagnoses Provider Diagnoses: Chest pain, Right knee pain, Hyperbilirubinemia Discharge ED - Sign-Out/Discharge Documenting (check all that apply): Patient Departure - discharge - Discharge Plan Condition: Good Disposition: HOME Prescriptions: Acetaminophen TAB* [Tylenol TAB*] 650 mg PO Q6HR PRN #30 tab PRN Reason: Pain - Mild Ibuprofen TAB* [Motrin TAB* 600 MG] 600 mg PO Q6H PRN #30 tab PRN Reason: Pain - Moderate Patient Education Materials: Chest Pain (ED), Knee Pain (ED) Referrals: [facility] [Outside] - 2 Days [facility] PHYSICIAN REFERRAL [Outside] - 2 Days Additional Instructions: You need to follow up with the [facility] or the [facility] physician referral for further testing to evaluate your elevated bilirubin and establish a Primary care physician. Follow up with Dr. Calderon as requested. Take Tylenol and Motrin for pain, use Ice on your leg to maintain swelling. Return with any new or concerning symptoms. - Billing Disposition and Condition Condition: GOOD Disposition: Home - Attestation Statements Document Initiated by Isai: Yes Documenting Scribe: Rohith Hernandez Provider For Whom Isai is Documenting (Include Credential): Chirag Smith MD Scribe Attestation: Rohith Rizo scribed for Chirag Smith MD on 03/02/20 at 1323. Scribe Documentation Reviewed: Yes Provider Attestation: The documentation as recorded by the Rohith mcclellan accurately reflects the service I personally performed and the decisions made by , Chirag Smith MD Status of Scribe Document: Viewed
[2020-03-02 08:27] LABS: Hematocrit 45 % (42-52); Hemoglobin 15.4 g/dL (14.0-18.0); Mean Corpuscular HGB Conc 34 g/dL (31-36); Mean Corpuscular Hemoglobin 30 pg (27-31); Mean Corpuscular Volume 87 fL (80-94); Mean Platelet Volume 8.4 fL (7.4-10.4); Platelet Count 156 10^3/uL (150-450); Red Blood Count 5.18 10^6 /uL (4.18-5.48); Red Cell Distribution Width 14 % (10-15); White Blood Count 22.8 10^3/uL (3.5-10.8)
[2020-03-02 08:37] LABS: INR 1.18 (0.82-1.09)
[2020-03-02 08:44] LABS: Albumin 4.4 g/dL (3.2-5.2); Albumin/Globulin Ratio 1.9 (1-3); BUN/Creatinine Ratio 17.9 (8-20); Calcium 9.2 mg/dL (8.6-10.3); EGFR African American 148.5 (>60); EGFR Non-African American 122.7 (>60); Globulin 2.3 g/dL (2-4); Potassium 4.2 mmol/L (3.5-5.0); Total Bilirubin 2.4 mg/dL (0.2-1.0); Total Protein 6.7 g/dL (6.4-8.9)
[2020-03-02] MEDS ORDERED: Ibuprofen TAB* 600 MG PO ONE (08:57)
[2020-03-02] MEDS ORDERED: Acetaminophen TAB* 325 MG PO ONE (08:57)
[2020-03-02 09:22] LABS: ABS Basophils 0.1 10^3/ul (0-0.2); ABS Eosinophils 0.1 10^3/ul (0-0.6); ABS Monocytes 0.7 10^3/ul (0-0.8); ABS Nucleated RBC 0.2 10^3/ul; Eosinophil % 0.3 %; Lymphocyte % 74.6 %
[2020-03-02 10:59] VITALS: BP 122/76
== END 2020-03-02 10:52 | disposition home or self-care (01) ==
LOC: ED 07:31
DX: R07.9 Chest pain, unspecified (principal); R06.02 Shortness of breath; M25.561 Pain in right knee; E80.6 Other disorders of bilirubin metabolism
CPT/HCPCS: 36415; 71046; 76705; 80053; 82248; 83735; 84484; 85025; 85060; 85379; 85610; 93005; 99283; A9270-GY